=== PATIENT | female | born 1975 | race Caucasian/White ===

== ENCOUNTER → 2021-06-12 16:34 | Outpatient (BNVA) | payer BC, SELFPAY | PROVIDERS: Family Provider Family Medicine; PCP Nurse Practitioner Family; Visit Provider Nurse Practitioner Family | DX: Z20.822 Contact with and (suspected) exposure to COVID-19 (principal) | CPT/HCPCS: 87635 ==

== ENCOUNTER 2023-02-02 22:38 | Emergency (ER) | payer BC, SELFPAY ==
[2023-02-02 22:41] VITALS: BP 128/79; PULSE 101; RESP 16; TEMP 36.7; O2SAT 94; BMI 31.4
[2023-02-02 22:49] VITALS: BP 145/85; PULSE 103; O2SAT 95
[2023-02-02 23:15] LABS: Basophils % 0.7 %; Eosinophils # 1.3 10^3/uL (0.0-0.8); Eosinophils % 0.3 %; Lymphocytes % 2.9 %; Mean Corpuscular HGB Conc 34.9 g/dL (30-55); Mean Corpuscular Hemoglobin 27.9 pg (27-33); Mean Platelet Volume 9.3 fL (7.4-10.4); Monocytes # 18.6 10^3/uL (0.2-0.9); Monocytes % 4.2 %; Neutrophils % 55.9 %; Nucleated Red Blood Cells # 5.5 /100WBC; Nucleated Red Blood Cells % 1.3 %; Platelet Count 77 10^3/cmm (157-399); Red Cell Distribution Width 25.2 % (12.1-15.1)
--- NOTE | 2023-02-02 23:21 | ED_ITS ---
HPI - Recheck/Abnormal Lab/Rx General: Chief Complaint: Recheck/Abnormal Lab/Rx Stated Complaint: abnormal labs Time Seen by Provider: 02/02/23 22:58 History of Present Illness: Patient reports to the ER for abnormal lab values from her family practice doctor's office. Patient states she been having left-sided back pain that can stays on her left side. Patient rates the pain a 7 out of 10 with standing. And this causes her to be short of breath at times. Patient did go to a c hiropractor that that usually helps her back pain and did not help this pain. Patient went to her PCP and had labs through work white blood cells come back at 446,000, hemoglobin was 7.0, and platelets was 79. Her PCP called and told her to come to the ER for further evaluation and treatment that would include a CT scan of her abdomen pelvis. Patient does have a history of CML but after multiple normal visits she has not followed up with any flaking roll operator or oncologist for several years. She says that she just normally sees Jenna Bardales for lab work. Review of Systems General: Reports: 10 or more systems reviewed and unremarkable except in HPI and below PFSH ED PFSH: Medical History CML (chronic myelocytic leukemia) Type 2 diabetes mellitus without complication Surgical History Hx of cholecystectomy Family History Father CAD (coronary artery disease) Grandfather Heart disease Other Breast cancer Cancer Social History Smoking and tobacco status: never smoked Alcohol intake: never Substance/Drug Use: never Physical Exam Const: COMMON NORMALS: no acute distress, average body habitus, patient oriented x3, no limitations, healthy appearing, alert and well nourished HENMT: COMMON NORMALS: normocephalic, atraumatic, hearing grossly normal bilaterally, external ears normal, Normal external nose present and moist oral mucous membranes HEAD & SCALP: normocephalic and atraumatic NOSE: Normal external nose present EXTERNAL EAR: Yes external ears normal Eye: COMMON NORMALS: Equal, round and reactive pupils present, EOMs intact bilaterally, conjunctivae normal and no scleral icterus CONJUNCTIVA: Yes conjunctivae normal PUPIL: Yes Equal, round and reactive pupils present Neck/C-Spine: COMMON NORMALS: full ROM, no lymphadenopathy, supple, no meningeal signs, no JVD and Thyroid normal THYROID: Thyroid normal Lymph: LYMPHATIC: no lymphadenopathy noted Chest: COMMONS NORMALS: normal inspection of the chest and normal palpation of entire chest wall Resp: COMMON NORMALS: normal respiratory effort, No retractions, No use of accessory muscles and clear to auscultation bilaterally AUSCULTATION: clear to auscultation bilaterally Cardio: COMMON NORMALS: no JVD, regular rate, regular rhythm, S1 normal heart sound present, S2 normal heart sound present, No gallops present (Cardio), No clicks present (Cardio), No murmurs present (Cardio) and No rub (Cardio) RATE: regular rate RHYTHM: regular rhythm HEART SOUNDS: S1 normal heart sound present and S2 normal heart sound present GI: COMMON NORMALS: Normal to inspection, nondistended, normoactive bowel sounds present, Soft to palpation, no masses and no bruits; negative for non-tender (Mild tenderness to palpation over the left upper quadrant.) and negative for No hepatosplenomegaly present (Possible splenomegaly.) PALPATION: Yes Soft to palpation and No No hepatosplenomegaly present (Possible splenomegaly.) : COMMON NORMALS: Yes no CVA tenderness BLADDER/KIDNEY EXAM: Yes no CVA tenderness Back/Pelvis: COMMON NORMALS: no CVA tenderness Neuro: COMMON NORMALS: patient oriented x3 SENSORIUM/ORIENTATION: Yes alert MENINGEAL SIGNS: Yes no meningeal signs Course Vital Signs: Vital signs: Vital Signs Temperature 98.0 F 02/02/23 22:41 Pulse Rate 88 02/03/23 00:00 Respiratory Rate 16 02/03/23 00:00 Blood Pressure 133/86 02/03/23 00:00 Pulse Oximetry 97 02/03/23 00:00 Oxygen Delivery Me thod Room Air 02/03/23 00:00 MDM - Recheck/Abnormal Lab/Rx Medical Decision Making Patient presents to the ER due to abnormal lab values. Labs were rechecked which showed a white count of 439,000, hemoglobin of 6.7 hematocrit of 19.[address] of the abdomen was obtained which showed a massively enlarged spleen up to [address]-onc [address] Edwards at [facility] was consulted he said the patient needs to follow-up with heme-onc in the next day or 2 for bone marrow biopsy to see if it turning into a blastic situation. He would start hydroxyurea 1000 mg daily. Transfuse for the anemia. Case management will be consulted to get an appointment with Dr. Lynhc in the next 1 or 2 days if possible. Differential Diagnosis Unlikely encounter for medication refill, encounter for wound recheck, encounter for recheck of burn, encounter for removal of sutures or warfarin-induced coa gulopathy Medical Records I reviewed the patient's medical records. Lab Data I reviewed the patient's lab results. 02/02/23 23:00 02/02/23 23:00 Radiology Impressions Abdomen/Pelvis CT 02/02/23 23:22 IMPRESSION: 1. Spleen massively enlarged to 25 cm. 2. Coronary artery atherosclerotic calcifications. 3. Emphysematous changes. 4. Cholecystectomy. 5. Left ovary 2.7 cm cyst, likely follicular. 6. Small amount of fluid in the uterine cavity, likely related to menstrual status. 7. Constipation. 8. Left femoral head 7.2 mm sclerotic nonaggressive probable bone island. Laboratory Results WBC 439.82 10^3/uL (3.29-11.43) H* 02/02/23 23:00 RBC 2.40 10^6/uL (3.85-5.65) L 02/02/23 23:00 Hgb 6.70 g/dL (11.27-16.99) L 02/02/23 23:00 Hct 19.2 % (36-47) L* 02/02/23 23: MCV 80.0 fl (85-98) L D 02/02/23 23:00 MCH 27.9 pg (27-33) 02/02/23 23:00 MCHC 34.9 g/dL (30-55) D 02/02/23 23:00 RDW 25.2 % (12.1-15.1) H 02/02/23 23:00 Plt Count 77 10^3/cmm (157-399) L 02/02/23 23:00 MPV 9.3 fL (7.4-10.4) 02/02/23 23: Neut % (Auto) 55.9 % 02/02/23 23:00 Lymph % (Auto) 2.9 % 02/02/23 23:00 [place] % (Auto) 4.2 % 02/02/23 23:00 Eos % (Auto) 0.3 % 02/02/23 23:00 Baso % (Auto) 0.7 % 02/02/23 23:00 Neut # (Auto) 245.78 10^3/uL (1.8-7.7) H 02/02/23 23:00 Lymph # (Auto) 13.0 10^3/uL (0.8-4.8) H 02/02/23 23:00 [place] # (Auto) 18.6 10^3/uL (0.2-0.9) H 02/02/23 23:00 Eos # (Auto) 1.3 10^3/uL (0.0-0.8) H 02/02/23 23:00 Baso # (Auto) 3.0 10^3/uL (0.0-0.1) H 02/02/23 23:00 Nucleated RBC % (auto) 1.3 % 02/02/23 23:00 Nucleated RBCs # 5.5 /100WBC 02/02/23 23:00 Sodium 138 mmol/L (136-145) 02/02/23 23:00 Potassium 3.6 mmol/L (3.5-5.1) 02/02/23 23:00 Chloride 104 mmol/L (98-107) 02/02/23 23:00 Carbon Dioxide 24 mmol/L (22-29) 02/02/23 23:00 Anion Gap 13.6 (5-19) 02/02/23 23:00 BUN 12 mg/dL (6-20) 02/02/23 23:00 Creatinine 0.6 mg/dL (0.5-0.9) 02/02/23 23:00 GFR Calculation 107.6 mL/min (90-130) 02/02/23 23:00 Glucose 162 mg/dL (65-115) H 02/02/23 23:00 Calculated Osmolality 289 mOsm/kg (285-295) 02/02/23 23:00 Calcium 8.8 mg/dL (8.5-10.5) 02/02/23 23:00 Total Bilirubin 0.4 mg/dL (0.15-1.2) 02/02/23 23:00 AST 31 U/L (0-32) 02/02/23 23:00 ALT 7 U/L (0-33) 02/02/23 23:00 Alkaline Phosphatase 100 U/L (35-105) 02/02/23 23:00 Total Protein 8.1 g/dL (6.6-8.7) 02/02/23 23:00 Albumin 3.8 g/dL (3.5-5.2) 02/02/23 23:00 Globulin 4.3 g/dL (1.3-4.6) 02/02/23 23:00 Urine Color Yellow (Yellow) 02/03/23 00:30 Urine Appearance Clear (CLEAR) 02/03/23 00:30 Urine pH 5 (5-7) 02/03/23 00:30 Ur Specific [place] 1.015 (1.005-1.030) 02/03/23 00:30 Urine Protein Trace (Negative) 02/03/23 00:30 Urine Glucose (UA) Norm (Normal) 02/03/23 00:30 Urine Ketones Negative (Negative) 02/03/23 00:30 Urine Blood Neg (Negative) 02/03/23 00:30 Urine Nitrate Negative (Negative) 02/03/23 00:30 Urine Bilirubin Neg (Negative) 02/03/23 00:30 Urine Urobilinogen 1 mg/dL (Negative) H 02/03/23 00:30 Ur Leukocyte Esterase Negative (Negative) 02/03/23 00:30 Urine RBC None /hpf (0-2) 02/03/23 00:30 Urine WBC None /hpf (0-5) 02/03/23 00:30 Ur Squamous Epith Cells 0-4 /hpf (0-5) H 02/03/23 00:30 Amorphous Sediment Not Reportable 02/03/23 00:30 Urine Bacteria 1+ /hpf (NONE) H 02/03/23 00:30 Urine Mucus 2+ /hpf 02/03/23 00:30 Blood Type O Positive 02/03/23 01:23 Rho(D) Type Positive 02/03/23 01:23 Antibody Screen Negative 02/03/23 01:23 Discharge Plan Discharge Patient Disposition: Home Clinical Impression: CML (chronic myelocytic leukemia), Anemia requiring transfusions, Thrombocytopenia, Splenomegaly Leukocytosis Qualifiers: Leukocytosis type: unspecified Qualified Code(s): D72.829 - Elevated white blood cell count, unspecified Condition: Stable Prescriptions: New hydroxyurea [Hydrea] 500 mg capsule 500 mg PO BID Qty: 60 0RF No Action (DME) blood sugar diagnostic [Blood Glucose Test] Strip See Rx Instructions .ROUTE .MEDSUPPLY Qty: 100 1RF Rx Instructions: As directed sertraline [Zoloft] 50 mg tablet 50 mg PO DAILY Qty: 90 3RF zolpidem [Ambien] 10 mg tablet 10 mg PO ONCE PRN (Reason: insomnia) Qty: 30 5RF Rx Instructions: has to have appt prior to any refills metformin 500 mg tablet 500 mg PO TID Qty: 90 0RF Rx Instructions: needs labs before additional refills nitrofurantoin monohyd/m-cryst [Macrobid] 100 mg capsule 100 mg PO Q12H 7 Days Qty: 14 0RF Rx Instructions: must administer with a meal/food Discharge Orders: Discharge ED (Routine); Ordered 02/03/23 Ordered By: Tex Wheeler Referrals: Joann Bardales FNP [Primary Care Provider] - 1 week Patient Instructions: Chronic Myeloid Leukemia (DC), Leukocytosis (ED), Anemia (ED), Thrombocytopenia Activity Restrictions/Additional Instructions: You have been referred to case management to get a referral to hematology oncology through the hospital. This should be done expediently and you will need an appointment probably within the next day or 2 and you may end up with a bone marrow biopsy to help your diagnosis. If case management has not contacted you within the next 24 hours please feel free to call back. 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
--- NOTE | 2023-02-02 23:22 | CTR_ITS ---
PROCEDURE INFORMATION: Exam: CT Abdomen And Pelvis With Contrast Exam date and time: 02/02/2023 11:47 PM Age: 47 years old Clinical indication: Abdominal pain; Flank; Left; Prior surgery; Surgery date: 6+ months; Surgery type: Gb; Patient HX: HX cancer/cml; Additional info: Cml, luq abd pain, prob splenomegaly TECHNIQUE: Imaging protocol: Computed tomography of the abdomen and pelvis with contrast. Radiation optimization: All CT scans at this facility use at least one of these dose optimization techniques: automated exposure control; mA and/or kV adjustment per patient size (includes targeted exams where dose is matched to clinical indication); or iterative reconstruction. Contrast material: OMNI 350; Contrast volume: 80 ml; Contrast route: INTRAVENOUS (IV); REPORTING DATA: Count of CT and Cardiac NM exams in prior 12 months: This patient has received 0 known CTs and 0 known cardiac nuclear medicine studies in the 12 months prior to the current study. COMPARISON: No relevant prior studies available. RADIATION DOSE METRICS: Total DLP (mGy-cm): 962.74 FINDINGS: Lungs: Emphysematous changes. Coronary arteries: Coronary artery atherosclerotic calcifications. Liver: Normal. No mass. Gallbladder and bile ducts: Cholecystectomy. Pancreas: Normal. No ductal dilation. Spleen: Spleen massively enlarged to 25 cm. Adrenal glands: Normal. No mass. Kidneys and ureters: Normal. No hydronephrosis. Stomach and bowel: Constipation. Appendix: No evidence of appendicitis. Intraperitoneal space: Unremarkable. No free air. No significant fluid collection. Vasculature: Unremarkable. No abdominal aortic aneurysm. Lymph nodes: Unremarkable. No enlarged lymph nodes. Urinary bladder: Unremarkable as visualized. Reproductive: Left ovary 2.7 cm cyst, likely follicular. Small amount of fluid in the uterine cavity, likely related to menstrual status. Bones/joints: Left femoral head 7.2 mm sclerotic nonaggressive probable bone island. Soft tissues: Unremarkable. CT/CT abdomen pelvis w con* [id number] IMPRESSION: 1. Spleen massively enlarged to 25 cm. 2. Coronary artery atherosclerotic calcifications. 3. Emphysematous changes. 4. Cholecystectomy. 5. Left ovary 2.7 cm cyst, likely follicular. 6. Small amount of fluid in the uterine cavity, likely related to menstrual status. 7. Constipation. 8. Left femoral head 7.2 mm sclerotic nonaggressive probable bone island.
[2023-02-02 23:25] LABS: Neutrophils # 245.78 10^3/uL (1.8-7.7)
[2023-02-02 23:28] LABS: Slide Review Slide Review Perform
[2023-02-02 23:29] LABS: Alanine Aminotransferase 7 U/L (0-33); Albumin Level 3.8 g/dL (3.5-5.2); Alkaline Phosphatase 100 U/L (35-105); Anion Gap 13.6 (5-19); Aspartate Amino Transferase 31 U/L (0-32); Blood Urea Nitrogen 12 mg/dL (6-20); Calcium 8.8 mg/dL (8.5-10.5); Carbon Dioxide 24 mmol/L (22-29); Chloride 104 mmol/L (98-107); Globulin 4.3 g/dL (1.3-4.6); Glomerular Filtration Rate 107.6 mL/min (90-130); Glucose 162 mg/dL (65-115); Hematocrit 19.2 % (36-47); Osmolality Calculated 289 mOsm/kg (285-295); Potassium 3.6 mmol/L (3.5-5.1); Sodium 138 mmol/L (136-145); Total Bilirubin 0.4 mg/dL (0.15-1.2); Total Protein 8.1 g/dL (6.6-8.7)
[2023-02-02 23:30] VITALS: BP 124/70; PULSE 83; O2SAT 94
[2023-02-02] MEDS: iohexol 350 mg/mL 500 mL Btl (per mL) IV (23:59)
[2023-02-03] VITALS (15 sets, daily range): BP systolic 124–137; BP diastolic 72–86; PULSE 78–88; RESP 13–24; TEMP 36.8–37.1; O2SAT 91–97
[2023-02-03 00:36] LABS: Add Urine Microscopic? YES; Bilirubin Urine Neg (Negative); Blood Urine Neg (Negative); Glucose Urine UA Norm (Normal); Ketones Urine Negative (Negative); Leukocyte Esterase Urine Negative (Negative); Nitrate Urine Negative (Negative); Protein Urine Trace (Negative); Specific Gravity, Urine 1.015 (1.005-1.030); Urine Appearance Clear (CLEAR); Urine Color Yellow (Yellow); Urobilinogen Urine 1 mg/dL (Negative); pH Urine 5 (5-7)
[2023-02-03 01:18] LABS: Squamous Epithelial Cell Urine 0-4 /hpf (0-5)
[2023-02-03 01:19] LABS: Add Urine Culture? No; Bacteria Urine 1+ /hpf; Mucus Urine 2+ /hpf
[2023-02-03] MEDS: ibuprofen 800 mg tablet PO (05:29)
--- NOTE | 2023-02-03 06:00 | PC.NURSE ---
Pt lung sounds are clear at this time.
--- NOTE | 2023-02-03 10:13 | DCPLANNER ---
manager post had message to schedule a follow up appointment for patient with hem/onc. manager post sent patients information to the front office staff at oncology. Patients information will be printed and reviewed. Clinic will call patient with appointment information.
== END 2023-02-03 06:11 | disposition home or self-care (01) ==
PROVIDERS: Emergency Provider Emergency Medicine; PCP Nurse Practitioner Family
DX: C92.10 Chronic myeloid leukemia, BCR/ABL-positive, not having achieved remission (principal); D72.829 Elevated white blood cell count, unspecified; D69.6 Thrombocytopenia, unspecified; R16.1 Splenomegaly, not elsewhere classified; D64.89 Other specified anemias; Z79.84 Long term (current) use of oral hypoglycemic drugs; I25.10 Atherosclerotic heart disease of native coronary artery without angina pectoris; E11.9 Type 2 diabetes mellitus without complications
CPT/HCPCS: 36415; 36430; 74177; 80053; 80061; 81001; 82306; 83036; 84439; 84443; 84481; 85007; 85025; 86850; 86900; 86920; 87040; 99285; P9016; Q9967

== ENCOUNTER → 2023-04-05 11:10 | Outpatient (BNVA) | payer BC, SELFPAY | PROVIDERS: PCP Nurse Practitioner Family; Visit Provider Nurse Practitioner Family | DX: Z11.52 Encounter for screening for COVID-19 (principal); R68.89 Other general symptoms and signs | CPT/HCPCS: 87400; 87426 ==

== ENCOUNTER 2023-11-30 09:45 | Oncology outpatient (recurring) (ONCR) | payer BC, SELFPAY ==
[2023-11-30 10:09] LABS: Hematocrit 29.2 % (36-47); Mean Corpuscular HGB Conc 34.6 g/dL (30-55); Mean Corpuscular Hemoglobin 28.1 pg (27-33); Mean Corpuscular Volume 81.1 fl (85-98); Mean Platelet Volume 12.9 fL (7.4-10.4); Platelet Count 48 10^3/cmm (157-399); Red Cell Distribution Width 14.6 % (12.1-15.1); White Blood Count 17.29 10^3/uL (3.29-11.43)
[2023-11-30 10:36] LABS: Slide Review Slide Review Perform
[2023-11-30 10:37] LABS: Absolute Segmented Neutrophil 10.7 10/cmm (1.6-7.1); Band Neutrophils Absolute 2.1 10^3/cmm (0.0-1.2); Eosinophils 0 %; Lymphocytes 11 %; Lymphocytes Absolute 2.1 10^3/cmm (1.2-3.4); Monocytes Absolute 0.5 10^3/cmm (0.1-0.6); Segmented Neutrophils 62 %; Total Cells Counted 100 (0-100)
[2023-11-30 10:38] LABS: Absolute Neutrophil 12.8 10^3/cmm (1.4-6.5); Anisocytosis 1+; Platelet Estimate Decreased (Normal); Polychromasia 1+
--- NOTE | 2023-11-30 11:08 | PC.NURSE ---
This nurse called patient at 1100 to inform of lab results. Patient did not answer, message was left informing patient that her hemoglobin was 10.1 and platelet count 48. Patient was informed that she did not require transfusion today per order from Dr. Mckenna at [place].
== END 2023-12-21 23:59 | disposition home or self-care (01) ==
PROVIDERS: Internal Medicine Medical Oncology; PCP Nurse Practitioner Family; Visit Provider Internal Medicine Medical Oncology
DX: C92.10 Chronic myeloid leukemia, BCR/ABL-positive, not having achieved remission (principal)
CPT/HCPCS: 36592; 85007; 85025; 86850; 86900